=== PATIENT | female | born 1995 | race Caucasian/White ===

== ENCOUNTER 2020-02-19 13:54 | Emergency (ER) | payer OTHER ==
[2020-02-19] MEDS ORDERED: DEXAMETHASONE 10 MG/ML VIAL PO STA (14:36)
[2020-02-19] MEDS ORDERED: CHERRY SYRUP 10 ML UDC PO ONE (14:36)
--- NOTE | 2020-02-19 14:44 | ED Physician Documentation ---
PD HPI CHEST PAIN - Stated complaint Stated Complaint: CHEST PAIN - Chief complaint Chief Complaint: General - History obtained from History obtained from: Patient - History of Present Illness Timing - onset: How many days ago (5) Timing - onset during: Rest Timing - duration: Days (5) Timing - details: Gradual onset, Still present Quality: Sharp, Pain Location: Substernal Radiation: Right upper extremity Improved by: Rest Worsened by: Inspiration Similar symptoms before: Has not had sx before Recently seen: Not recently seen - Additional information Additional information: 24-year-old female reports a 5-day history of anterior chest pain with some radiation into her right arm. She describes pain in the lower back starting 2 weeks ago, a reduction in working out for about a week and the onset of pain in the lower chest wall posteriorly followed today by pain in the anterior chest and right arm. Review of Systems Constitutional: denies: Fever Eyes: denies: Decreased vision Ears: denies: Ear pain Nose: denies: Rhinorrhea / runny nose, Congestion Throat: denies: Sore throat Cardiac: reports: Chest pain / pressure. denies: Palpitations, Pedal edema, Calf pain Respiratory: denies: Dyspnea, Cough, Wheezing GI: denies: Abdominal Pain, Nausea, Vomiting : denies: Dysuria, Frequency Skin: denies: Rash Musculoskeletal: reports: Back pain. denies: Neck pain, Extremity pain Neurologic: denies: Generalized weakness, Focal weakness, Numbness PD PAST MEDICAL HISTORY - Present Medications Home Medications: Ambulatory Orders Medication Instructions Recorded Confirmed Cyclobenzaprine [Flexeril] 10 mg PO TID PRN #20 tablet 02/19/20 Meloxicam [Mobic] 15 mg PO DAILY #20 tablet 02/19/20 - Allergies Allergies/Adverse Reactions: Allergies Allergy/AdvReac Type Severity Reaction Status Date / Time No Known Drug Allergies Allergy Verified 02/19/20 14:11 PD ED PE NORMAL - Vitals Vital signs reviewed: Yes (hypertensive with wide pulse pressure. ) - General General: Alert and oriented X 3, No acute distress, Well developed/nourished - HEENT HEENT: Atraumatic, PERRL, EOMI - Neck Neck: Supple, no meningeal sign, No bony TTP - Cardiac Cardiac: RRR, No murmur - Respiratory Respiratory: No respiratory distress, Clear bilaterally - Abdomen Abdomen: Normal bowel sounds, Soft, Non tender, Non distended, No organomegaly - Back Back: No CVA TTP, No spinal TTP - Derm Derm: Normal color, Warm and dry, No rash - Extremities Extremities: No deformity, No edema - Neuro Neuro: Alert and oriented X 3, lead generation specialist 2-12 intact, No motor deficit, No sensory deficit, Normal speech Eye Opening: Spontaneous Motor: Obeys Commands Verbal: Oriented GCS Score: 15 - Psych Psych: Normal mood, Normal affect Results - Vitals Vitals: Vital Signs - 24 hr 02/19/20 02/19/20 02/19/20 14:09 14:13 16:04 Temperature 36.8 C Heart Rate 78 83 70 Respiratory 18 18 16 Rate Blood Pressure 138/61 H 128/70 101/78 O2 Saturation 100 99 99 Oxygen O2 Source Room air - EKG (time done) 1412 Rate: Rate (enter#) (96) Rhythm: NSR Compare to prior EKG: Old EKG unavailable Computer interpretation: Agree with computer - Labs Labs: Laboratory Tests 02/19/20 02/19/20 02/19/20 14:50 14:50 15:14 WBC 7.1 RBC 4.37 Hgb 14.0 Hct 40.9 MCV 93.6 MCH 32.0 H MCHC 34.2 RDW 11.9 L Plt Count 211 MPV 9.5 Neut # (Auto) 4.3 Lymph # (Auto) 2.2 [place] # (Auto) 0.5 Eos # (Auto) 0.1 Baso # (Auto) 0.0 Absolute Nucleated RBC 0.00 Nucleated RBC % 0.0 Sodium 139 Potassium 3.5 Chloride 103 Carbon Dioxide 26 Anion Gap 10.0 BUN 14 Creatinine 0.9 Estimated GFR (MDRD) 76 L Glucose 114 H Calcium 9.2 Total Bilirubin 0.6 AST 18 ALT 16 Alkaline Phosphatase 51 Total Protein 7.2 Albumin 4.3 Globulin 2.9 Albumin/Globulin Ratio 1.5 Lipase 33 Urine Color YELLOW Urine Clarity CLEAR Urine pH 7.0 Ur Specific [place] 1.015 Urine Protein NEGATIVE Urine Glucose (UA) NEGATIVE Urine Ketones NEGATIVE Urine Occult Blood TRACE-LYSE Urine Nitrite NEGATIVE Urine Bilirubin NEGATIVE Urine Urobilinogen 0.2 (NORMAL) Ur Leukocyte Esterase NEGATIVE Ur Microscopic Review NOT INDICATED Urine Culture Comments NOT INDICATED Urine HCG, Qual NEGATIVE Procedures - IVC sono (time) 1445 Bedside IVC sono: IVC measures (cm) (1.2), IVC collapsed c insp (cm) (complete), Dehydration (est 1 liter deficit) PD MEDICAL DECISION MAKING - ED course Complexity details: reviewed results, re-evaluated patient, considered differential, d/w patient ED course: 24 y/o female with low back pain and lower chest pain is found to be dehydrated and she is orally hydrated and administered decadron. Departure - Departure Disposition: Home, Self Care Clinical Impression: Chest wall pain, Dehydration Condition: Stable Instructions: ED Strain Chest Wall, ED Dehydration Follow-Up: Stepan Dobbs ARNP [Primary Care Provider] - Prescriptions: Cyclobenzaprine [Flexeril] 10 mg PO TID PRN #20 tablet PRN Reason: Spasms Meloxicam [Mobic] 15 mg PO DAILY #20 tablet Discharge Date/Time: 02/19/20 16:09
[2020-02-19 14:53] LABS: BASOPHILS % (AUTO) 0.6 %; EOSINOPHILS # (AUTO) 0.1 10^3/uL (0.0-0.7); EOSINOPHILS % (AUTO) 1.3 %; LYMPHOCYTES # (AUTO) 2.2 10^3/uL (1.5-3.5); LYMPHOCYTES % (AUTO) 30.7 %; MEAN CORPUSCULAR HGB CONC 34.2 g/dL (32.0-36.0); MEAN CORPUSCULAR VOLUME 93.6 fL (81.0-99.0); MEAN PLATELET VOLUME 9.5 fL (7.9-10.8); MONOCYTES # (AUTO) 0.5 10^3/uL (0.0-1.0); MONOCYTES % (AUTO) 6.9 %; NEUTROPHILS # (AUTO) 4.3 10^3/uL (1.5-6.6); NEUTROPHILS % (AUTO) 60.1 %; PLT - PLATELET COUNT 211 10^3/uL (130-450); RED BLOOD COUNT 4.37 10^6/uL (4.20-5.40); RED CELL DISTRIBUTION WIDTH 11.9 % (12.0-15.0); WHITE BLOOD COUNT 7.1 x10^3/uL (4.8-10.8)
[2020-02-19 15:10] LABS: ALBUMIN 4.3 g/dL (3.2-5.5); ALBUMIN/GLOBULIN RATIO 1.5 (1.0-2.2); BILIRUBIN,TOTAL 0.6 mg/dL (0.2-1.0); CALCIUM 9.2 mg/dL (8.5-10.3); CREATININE 0.9 mg/dL (0.4-1.0); TOTAL PROTEIN 7.2 g/dL (6.7-8.2)
--- NOTE | 2020-02-19 15:20 | XRAY Report ---
PROCEDURE: Chest 2 View X-Ray INDICATIONS: chest pain TECHNIQUE: 2 view(s) of the chest. COMPARISON: None. FINDINGS: Surgical changes and devices: None. Lungs and pleura: No pleural effusions or pneumothorax. Lungs are clear. Mediastinum: Mediastinal contours are normal. Heart size is normal. Bones and chest wall: No suspicious bony abnormalities. Soft tissues appear unremarkable. IMPRESSION: No evidence acute pulmonary process. Reviewed by: Benito Forman MD on 02/19/2020 2:18 PM AKDT Approved by: Benito Forman MD on 02/19/2020 2:18 PM AKDT Station ID: [id number]
[2020-02-19 15:24] LABS: BILIRUBIN,URINE NEGATIVE (NEGATIVE); GLUCOSE, URINE (UA) NEGATIVE (NEGATIVE); KETONES,URINE (UA) NEGATIVE (NEGATIVE); LEUKOCYTE ESTERASE, URINE NEGATIVE (NEGATIVE); NITRITE,URINE NEGATIVE (NEGATIVE); OCCULT BLOOD,URINE TRACE-LYSE (NEGATIVE); PROTEIN,URINE NEGATIVE (NEGATIVE); UROBILINOGEN,URINE 0.2 (NORMAL) E.U./dL (NORMAL)
[2020-02-19 15:25] LABS: CLARITY,URINE CLEAR (CLEAR)
[2020-02-19 15:26] LABS: HCG UR QUAL NEGATIVE
[2020-02-19 16:05] VITALS: BP 101/78
== END 2020-02-19 16:09 | disposition home or self-care (01) ==
LOC: ED 13:54
DX: R07.89 Other chest pain (principal); E86.0 Dehydration
CPT/HCPCS: 36415; 71046; 80053; 81003; 81025; 83690; 85025; 93005; 99284; A9270; 81001; 87086

== ENCOUNTER 2020-02-24 13:39 | Emergency (ER) | payer OTHER ==
[2020-02-24 16:48] LABS: BILIRUBIN,URINE NEGATIVE (NEGATIVE); GLUCOSE, URINE (UA) NEGATIVE (NEGATIVE); KETONES,URINE (UA) NEGATIVE (NEGATIVE); LEUKOCYTE ESTERASE, URINE NEGATIVE (NEGATIVE); NITRITE,URINE NEGATIVE (NEGATIVE); OCCULT BLOOD,URINE TRACE-INTA (NEGATIVE); PH,URINE 7.5 PH (5.0-7.5); PROTEIN,URINE NEGATIVE (NEGATIVE); UROBILINOGEN,URINE 0.2 (NORMAL) E.U./dL (NORMAL)
[2020-02-24 16:57] LABS: BACTERIA,URINE None Seen /HPF (None Seen); CLARITY,URINE CLEAR (CLEAR); RBC,URINE None Seen /HPF (0-5); SQUAMOUS EPITHELIAL CELL,UR FEW Squamous (<= Few)
--- NOTE | 2020-02-24 17:00 | ED Physician Documentation ---
History of Present Illness - Stated complaint Stated Complaint: CP, ABD PX - Chief complaint Chief Complaint: Abd Pain - History obtained from History obtained from: Patient, Family - History of Present Illness Timing: Prior to arrival, How many weeks ago - Additonal information Additional information: 24-year-old female returns to the emergency department for chief complaint of chest pain and right upper quadrant abdominal pain. Patient was seen for similar 02/19/2020 with no significant findings on her work-up.Since discharge patient reports that she often has pain in her chest at rest. She has become dyspneic especially with activity. Chest pain is typically described as sharp. It is not worse with movement. It is not reproducible. She is also noticed that she has a cramping sensation just below the right costal margin of her ribs. She is had no cough or fever. No diarrhea. No urinary symptoms. Patient has tried [id number] pain relievers but they do not work. Patient denies any recent travel. No unilateral leg swelling or calf pain. No hemoptysis. No personal history of DVT or cancer. No family history for thrombosis. Patient is not taking hormones. Past surgical history pertinent for appendectomy. Review of Systems Constitutional: denies: Fever, Myalgias Cardiac: reports: Chest pain / pressure Respiratory: reports: Dyspnea. denies: Cough, Hemoptysis, Wheezing GI: reports: Abdominal Pain. denies: Nausea, Vomiting, Diarrhea : denies: Dysuria, Frequency, Hesitancy Skin: denies: Rash, Lesions Musculoskeletal: denies: Neck pain, Back pain Neurologic: denies: Generalized weakness, Syncope PD PAST MEDICAL HISTORY - Past Medical History Past Medical History: Yes Cardiovascular: None Respiratory: None Neuro: None Endocrine/Autoimmune: None GI: None SALES AND MARKETING EXECUTIVE: None : None HEENT: None Psych: None Musculoskeletal: None Derm: None - Past Surgical History Past Surgical History: No - Present Medications Home Medications: Ambulatory Orders Medication Instructions Recorded Confirmed Cyclobenzaprine [Flexeril] 10 mg PO TID PRN #20 tablet 02/19/20 Meloxicam [Mobic] 15 mg PO DAILY #20 tablet 02/19/20 - Allergies Allergies/Adverse Reactions: Allergies Allergy/AdvReac Type Severity Reaction Status Date / Time No Known Drug Allergies Allergy Verified 02/19/20 14:11 - Social History Does the pt smoke?: No Smoking Status: Never smoker Does the pt drink ETOH?: No Does the pt have substance abuse?: No - Immunizations Immunizations are current?: Yes PD ED PE NORMAL - General General: Alert and oriented X 3, No acute distress, Well developed/nourished - HEENT HEENT: PERRL, EOMI - Neck Neck: Supple, no meningeal sign, No adenopathy - Cardiac Cardiac: RRR, No murmur, Other (Pain in the chest is not reproducible with palpation.) - Respiratory Respiratory: No respiratory distress - Abdomen Abdomen: Normal bowel sounds, Soft, Other (Mild tenderness in the right upper quadrant without radiation. Negative Aceves's. Negative McBurney's No guarding or rebound.) - Back Back: No: No CVA TTP, No spinal TTP Results - Vitals Vitals: Vital Signs - 24 hr 02/24/20 02/24/20 13:44 19:12 Temperature 37.0 C Heart Rate 130 H 82 Respiratory 18 18 Rate Blood Pressure 146/108 H 115/69 O2 Saturation 100 98 Oxygen O2 Source Room air - EKG (time done) 1356 Rate: Rate (enter#) (110) Rhythm: Sinus tachycardia [place]: Normal Intervals: Normal [place] QRS: Normal Ischemia: Normal ST segments Compare to prior EKG: Changed from prior EKG (now tachycardic) Computer interpretation: Agree with computer - Labs Labs: Laboratory Tests 02/24/20 02/24/20 02/24/20 13:21 13:21 13:21 WBC 9.1 RBC 4.68 Hgb 14.8 Hct 43.1 MCV 92.1 MCH 31.6 H MCHC 34.3 RDW 11.9 L Plt Count 261 MPV 9.3 Neut # (Auto) 5.9 Lymph # (Auto) 2.6 [place] # (Auto) 0.5 Eos # (Auto) 0.1 Baso # (Auto) 0.0 Absolute Nucleated RBC 0.00 Nucleated RBC % 0.0 D-Dimer < 200.0 L Sodium 139 Potassium 3.8 Chloride 101 Carbon Dioxide 27 Anion Gap 11.0 BUN 14 Creatinine 0.9 Estimated GFR (MDRD) 76 L Glucose 98 Calcium 9.5 Total Bilirubin 0.6 AST 16 ALT 14 Alkaline Phosphatase 53 Troponin I High Sens Total Protein 8.0 Albumin 4.8 Globulin 3.2 Albumin/Globulin Ratio 1.5 Lipase 32 Urine Color Urine Clarity Urine pH Ur Specific [place] Urine Protein Urine Glucose (UA) Urine Ketones Urine Occult Blood Urine Nitrite Urine Bilirubin Urine Urobilinogen Ur Leukocyte Esterase Urine RBC Urine WBC Ur Squamous Epith Cells Urine Bacteria Urine Culture Comments Urine HCG, Qual 02/24/20 02/24/20 02/24/20 13:21 16:35 16:35 WBC RBC Hgb Hct MCV MCH MCHC RDW Plt Count MPV Neut # (Auto) Lymph # (Auto) [place] # (Auto) Eos # (Auto) Baso # (Auto) Absolute Nucleated RBC Nucleated RBC % D-Dimer Sodium Potassium Chloride Carbon Dioxide Anion Gap BUN Creatinine Estimated GFR (MDRD) Glucose Calcium Total Bilirubin AST ALT Alkaline Phosphatase Troponin I High Sens < 2.3 L Total Protein Albumin Globulin Albumin/Globulin Ratio Lipase Urine Color YELLOW Urine Clarity CLEAR Urine pH 7.5 Ur Specific [place] 1.015 1.015 Urine Protein NEGATIVE Urine Glucose (UA) NEGATIVE Urine Ketones NEGATIVE Urine Occult Blood TRACE-INTA Urine Nitrite NEGATIVE Urine Bilirubin NEGATIVE Urine Urobilinogen 0.2 (NORMAL) Ur Leukocyte Esterase NEGATIVE Urine RBC None Seen Urine WBC 0-3 Ur Squamous Epith Cells FEW Squamous Urine Bacteria None Seen Urine Culture Comments NOT INDICATED Urine HCG, Qual NEGATIVE - Rads (name of study) CT abd/pelvis: Radiology: Final report received (No acute process. No hydronephrosis. No urolithiasis) abd ultrasound Radiology: Final report received (Normal appearance of the gallbladder. Mild right upper pole calyectasis.) PD MEDICAL DECISION MAKING - ED course Complexity details: reviewed results, re-evaluated patient, d/w patient, d/w family ED course: -year-old female returns to the emergency department with chief complaint of chest pain that is pleuritic in nature as well as right upper quadrant abdominal pain. - As patient had been seen here just a few days prior and with tachycardia we could not rule out a PE via [place] or PERC criteria a d-dimer was completed. Her d-dimer is normal. Therefore I do not feel that we need to pursue CT imaging for her pleuritic chest pain. - Labs reviewed in full and were essentially normal. Her urine shows no signs of infection. No hematuria. - Limited abdominal ultrasound did show concern for right renal calyectasis. Given the location of the pain I was concerned that she may have undiagnosed nephrolithiasis. CT of the abdomen was completed and there were no findings of nephrolithiasis or hydronephrosis. - Discussed all these findings in detail with the patient. During the course of the ED visit she has been relatively comfortable and has required very little pain management. I recommended NSAID medications at home and very close follow- up with her primary care physician. Emergent return precautions were discussed. Departure - Departure Disposition: 01 Home, Self Care Clinical Impression: Right upper quadrant abdominal pain, Pleuritic chest pain Condition: Stable Instructions: Abdominal Pain Follow-Up: Stepan Dobbs ARNP [Primary Care Provider] - Comments: Veronica your x-ray a few days ago was normal. Today the CT of your abdomen and pelvis does not show any worrisome findings. Specifically there are no kidney stones seen and no swelling of the kidney. The ultrasound that was completed did suggest mild swelling in one pole of the kidney but again this was not seen on the CT scan. Your lab work is essentially normal. I do not have concerned that you are having a heart attack or that you have a blood clot in your lungs. I do however think that you may be having some kidney pain. Sometimes we can see this when patients have stones that are simply too small to see on either ultrasound or CAT scan. Please continue to take ibuprofen at home with food as needed. I would like you to see your primary care doctor in follow-up in the next 1 to 2 weeks. If your pain persists further evaluation may be warranted with a uro logist. Please return here if you have fevers, bloody urine, cannot breathe or speak normally or have any other emergent concerns.
[2020-02-24 17:28] LABS: BASOPHILS % (AUTO) 0.3 %; EOSINOPHILS # (AUTO) 0.1 10^3/uL (0.0-0.7); EOSINOPHILS % (AUTO) 1.2 %; HGB - HEMOGLOBIN 14.8 g/dL (12.0-16.0); LYMPHOCYTES # (AUTO) 2.6 10^3/uL (1.5-3.5); LYMPHOCYTES % (AUTO) 28.1 %; MEAN CORPUSCULAR HEMOGLOBIN 31.6 pg (27.0-31.0); MEAN CORPUSCULAR HGB CONC 34.3 g/dL (32.0-36.0); MEAN CORPUSCULAR VOLUME 92.1 fL (81.0-99.0); MEAN PLATELET VOLUME 9.3 fL (7.9-10.8); MONOCYTES # (AUTO) 0.5 10^3/uL (0.0-1.0); MONOCYTES % (AUTO) 5.7 %; NEUTROPHILS # (AUTO) 5.9 10^3/uL (1.5-6.6); NEUTROPHILS % (AUTO) 64.4 %; PLT - PLATELET COUNT 261 10^3/uL (130-450); RED BLOOD COUNT 4.68 10^6/uL (4.20-5.40); RED CELL DISTRIBUTION WIDTH 11.9 % (12.0-15.0); WHITE BLOOD COUNT 9.1 x10^3/uL (4.8-10.8)
[2020-02-24 17:34] LABS: HCG UR QUAL NEGATIVE
[2020-02-24 17:41] LABS: ALBUMIN 4.8 g/dL (3.2-5.5); ALBUMIN/GLOBULIN RATIO 1.5 (1.0-2.2); BILIRUBIN,TOTAL 0.6 mg/dL (0.2-1.0); CALCIUM 9.5 mg/dL (8.5-10.3); CREATININE 0.9 mg/dL (0.4-1.0)
--- NOTE | 2020-02-24 19:03 | Ultrasound Report ---
PROCEDURE: Abdomen Limited INDICATIONS: ruq abd pain TECHNIQUE: Real-time focused scanning was performed of the abdomen, with image documentation. COMPARISON: None FINDINGS: Liver, gallbladder, biliary tree unremarkable. No sonographic Aceves's sign. No pericholec ystic fluid. No gallbladder wall thickening. The pancreas is within normal limits Right kidney measures 10.9 cm in length. There is mild right upper pole caliectasis. IMPRESSION: Normal appearance of the gallbladder Mild right upper pole caliectasis Reviewed by: Juventino Dupont MD on 02/24/2020 7:02 PM PDT Approved by: Juventino Dupont MD on 02/24/2020 7:02 PM PDT Station ID: [id number]
--- NOTE | 2020-02-24 20:20 | CT Report ---
PROCEDURE: Abdomen/Pelvis WO INDICATIONS: eval for obstructive uropathy TECHNIQUE: Noncontrast 5 mm thick sections acquired from the diaphragms to the symphysis. 5 mm coronal and sagi ttal reformats were then performed. For radiation dose reduction, the following was used: automated exposure control, adjustment of mA and/or kV according to patient size. COMPARISON: None. FINDINGS: Image quality: Excellent. ABDOMEN: Lung bases: Lung bases are clear. Heart size is normal. Solid organs: Liver and spleen are normal in size. Gallbladder negative Pancreas is normal in cont ours. No adrenal nodules. Kidneys are normal in size, without hydronephrosis or nephrolithiasis. Peritoneum and bowel: Unenhanced bowel loops demonstrate normal wall thickness and caliber. No free fluid or air. Appendix not visualized. It may be surgically absent. Nodes and vessels: No retroperitoneal or mesenteric adenopathy by size criteria. Aorta and inferior vena cava are normal in caliber. Miscellaneous: No ventral hernias. PELVIS: Genitourinary: Bladder wall thickness is normal. Miscellaneous: No inguinal hernias or adenopathy. Bones: No suspicious bony lesions. No vertebral body compression fractures. IMPRESSION: No acute process. No hydronephrosis. No urolithiasis. Reviewed by: Juventino Dupont MD on 02/24/2020 8:19 PM PDT Approved by: Juventino Dupont MD on 02/24/2020 8:19 PM PDT Station ID: [id number]
[2020-02-24 21:09] VITALS: BP 128/80
== END 2020-02-24 21:09 | disposition home or self-care (01) ==
LOC: ED 13:39
DX: R10.11 Right upper quadrant pain (principal); R07.81 Pleurodynia
CPT/HCPCS: 36415; 74176; 76705; 80053; 81001; 81025; 83690; 84484; 85025; 85379; 87086; 93005; 99284

== ENCOUNTER 2020-04-16 16:03 | Emergency (ER) | payer OTHER ==
--- NOTE | 2020-04-16 16:25 | ED Physician Documentation ---
PD HPI ABD PAIN - Stated complaint Stated Complaint: RLQ PAIN - Chief complaint Chief Complaint: Abd Pain - History obtained from History obtained from: Patient - Additional information Additional information: Previously healthy monogamous 24-year-old woman with a 3-year-old boy at home presents by ambulance for ongoing concerning symptoms. It started almost 2 months ago with constant chest pains that are now milder and intermittent. She was seen twice during that time and had a work-up with negative troponins d- dimer chest x-ray etc. Subsequently developed more abdominal pain first in the right upper quadrant and was seen here and had negative right upper quadrant sonography as well as a CT of the abdomen and pelvis. Now for the last month has had daily right lower quadrant pain with milder left upper quadrant pain. She feels early satiety nausea without vomiting. She Is usually constipated but occasionally has diarrhea as well. No fevers or sick contacts. Has not lost any weight. She denies alcohol or drug use including marijuana. Previous to this she was exercising but stopped exercising when she started having intermittent chest pains. Review of Systems Ten Systems: 10 systems reviewed and negative Constitutional: reports: Myalgias, Fatigue. denies: Fever, Chills Throat: denies: Dental pain / toothache, Sore throat Cardiac: reports: Chest pain / pressure. 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 04/16/20 - Allergies Allergies/Adverse Reactions: Allergies Allergy/AdvReac Type Severity Reaction Status Date / Time No Known Drug Allergies Allergy Verified 04/16/20 16:07 - Social History Does the pt smoke?: No Smoking Status: Never smoker Does the pt drink ETOH?: No Does the pt have substance abuse?: No - Immunizations Immunizations are current?: Yes PD ED PE NORMAL - Vitals Vital signs reviewed: Yes - General General: Alert and oriented X 3, No acute distress - HEENT HEENT: PERRL, EOMI - Neck Neck: Supple, no meningeal sign, No bony TTP - Cardiac Cardiac: RRR, No murmur - Respiratory Respiratory: No respiratory distress, Clear bilaterally - Abdomen Abdomen: Normal bowel sounds, Soft, Non tender - Back Back: No CVA TTP, No spinal TTP - Derm Derm: Normal color, Warm and dry - Extremities Extremities: No edema, No calf tenderness / cord - Neuro Neuro: Alert and oriented X 3, Normal speech Results - Vitals Vitals: Vital Signs - 24 hr 04/16/20 04/16/20 16:07 18:10 Temperature 37.4 C Heart Rate 96 69 Respiratory 16 10 L Rate Blood Pressure 125/84 H 95/50 L O2 Saturation 96 98 Oxygen O2 Source Room air - Labs Labs: Laboratory Tests 04/16/20 04/16/20 04/16/20 16:25 16:25 16:33 WBC 9.8 RBC 4.44 Hgb 14.2 Hct 40.2 MCV 90.5 MCH 32.0 H MCHC 35.3 RDW 11.9 L Plt Count 285 MPV 9.4 Neut # (Auto) 5.8 Lymph # (Auto) 3.1 [place] # (Auto) 0.8 Eos # (Auto) 0.2 Baso # (Auto) 0.0 Absolute Nucleated RBC 0.00 Nucleated RBC % 0.0 VBG pH VBG pCO2 VBG pO2 VBG HCO3 VBG Total CO2 VBG O2 Saturation VBG Base Excess Sodium Potassium Chloride Carbon Dioxide Anion Gap BUN Creatinine Estimated GFR (MDRD) Glucose Calcium Total Bilirubin AST ALT Alkaline Phosphatase Total Creatine Kinase C-Reactive Protein Total Protein Albumin Globulin Albumin/Globulin Ratio Lipase Urine Color LT. YELLOW Urine Clarity CLEAR Urine pH 7.5 Ur Specific [place] 1.010 1.010 Urine Protein NEGATIVE Urine Glucose (UA) NEGATIVE Urine Ketones NEGATIVE Urine Occult Blood NEGATIVE Urine Nitrite NEGATIVE Urine Bilirubin NEGATIVE Urine Urobilinogen 0.2 (NORMAL) Ur Leukocyte Esterase NEGATIVE Ur Microscopic Review NOT INDICATED Urine Culture Comments NOT INDICATED Urine HCG, Qual NEGATIVE Urine Opiates Screen NEGATIVE Ur Oxycodone Screen NEGATIVE Urine Methadone Screen NEGATIVE Ur Propoxyphene Screen NEGATIVE Ur Barbiturates Screen NEGATIVE Ur Tricyclics Screen NEGATIVE Ur Phencyclidine Scrn NEGATIVE Ur Amphetamine Screen NEGATIVE U Methamphetamines Scrn NEGATIVE U Benzodiazepines Scrn NEGATIVE Urine Cocaine Screen NEGATIVE U Cannabinoids Screen NEGATIVE 04/16/20 04/16/20 04/16/20 16:33 16:33 16:33 WBC RBC Hgb Hct MCV MCH MCHC RDW Plt Count MPV Neut # (Auto) Lymph # (Auto) [place] # (Auto) Eos # (Auto) Baso # (Auto) Absolute Nucleated RBC Nucleated RBC % VBG pH 7.419 H VBG pCO2 36.0 L VBG pO2 61.7 H VBG HCO3 22.8 L VBG Total CO2 23.9 L VBG O2 Saturation 92.0 H VBG Base Excess -1.2 Sodium 139 Potassium 3.6 Chloride 104 Carbon Dioxide 24 Anion Gap 11.0 BUN 13 Creatinine 0.8 Estimated GFR (MDRD) 87 L Glucose 117 H Calcium 9.4 Total Bilirubin 0.7 AST 16 ALT 15 Alkaline Phosphatase 54 Total Creatine Kinase 68 C-Reactive Protein < 1.0 Total Protein 7.7 Albumin 4.6 Globulin 3.1 Albumin/Globulin Ratio 1.5 Lipase 43 Urine Color Urine Clarity Urine pH Ur Specific [place] Urine Protein Urine Glucose (UA) Urine Ketones Urine Occult Blood Urine Nitrite Urine Bilirubin Urine Urobilinogen Ur Leukocyte Esterase Ur Microscopic Review Urine Culture Comments Urine HCG, Qual Urine Opiates Screen Ur Oxycodone Screen Urine Methadone Screen Ur Propoxyphene Screen Ur Barbiturates Screen Ur Tricyclics Screen Ur Phencyclidine Scrn Ur Amphetamine Screen U Methamphetamines Scrn U Benzodiazepines Scrn Urine Cocaine Screen U Cannabinoids Screen - Rads (name of study) Pelvic sono Radiology: Final report received PD MEDICAL DECISION MAKING - ED course ED course: 24-year-old woman with ongoing issues with abdominal pain, headaches. She has had previous work-ups with chest pain and abdominal pain which is such been negative. Had an upper endoscopy but has not received formal results yet. Exam is benign as are her labs. Feeling somewhat better after dicyclomine and Ativan. Many parts of her history are suggestive of IBS. Departure - Departure Disposition: 01 Home, Self Care Clinical Impression: Abdominal pain Qualifiers: Abdominal location: unspecified location Qualified Code(s): R10.9 - Unspecified abdominal pain Condition: Good Record reviewed to determine appropriate education?: Yes Instructions: ED Abdominal Pain Unkn Cause Prescriptions: Dicyclomine HCl 20 mg PO QID PRN #30 tablet PRN Reason: Abdominal Pain Omeprazole 20 mg PO DAILY #30 capsule. Comments: Lab work remained stable and normal today. We also ran a C-reactive protein which was low suggestive against any inflammatory process like Crohn's disease. As discussed, the cause your pain is not clear, but your symptoms suggest some level of irritable bowel syndrome. I suggest he talk to your doctor about a formal gastroenterology referral. Also you need to follow-up on the results from the upper endoscopy done a couple of weeks ago. I am starting some medications for irritable bowel syndrome, also gastritis.
[2020-04-16] MEDS ORDERED: LORazepam 0.5 MG TABLET PO STA (16:26)
[2020-04-16] MEDS ORDERED: DICYCLOMINE 10 MG CAPSULE PO STA (16:26)
[2020-04-16 16:38] LABS: MUDS CUTOFF CONCENTRATIONS CUTOFF CONC BELOW:
[2020-04-16 16:43] LABS: BASOPHILS % (AUTO) 0.4 %; EOSINOPHILS # (AUTO) 0.2 10^3/uL (0.0-0.7); EOSINOPHILS % (AUTO) 1.6 %; HGB - HEMOGLOBIN 14.2 g/dL (12.0-16.0); LYMPHOCYTES # (AUTO) 3.1 10^3/uL (1.5-3.5); LYMPHOCYTES % (AUTO) 31.3 %; MEAN CORPUSCULAR HGB CONC 35.3 g/dL (32.0-36.0); MEAN CORPUSCULAR VOLUME 90.5 fL (81.0-99.0); MEAN PLATELET VOLUME 9.4 fL (7.9-10.8); MONOCYTES # (AUTO) 0.8 10^3/uL (0.0-1.0); MONOCYTES % (AUTO) 7.6 %; NEUTROPHILS # (AUTO) 5.8 10^3/uL (1.5-6.6); NEUTROPHILS % (AUTO) 58.7 %; PLT - PLATELET COUNT 285 10^3/uL (130-450); RED BLOOD COUNT 4.44 10^6/uL (4.20-5.40); RED CELL DISTRIBUTION WIDTH 11.9 % (12.0-15.0); WHITE BLOOD COUNT 9.8 x10^3/uL (4.8-10.8)
[2020-04-16 16:45] LABS: VBG BASE EXCESS -1.2 mmol/L (-2 - +2); VBG PH 7.419 (7.31-7.41); VBG PO2 61.7 mmHg (25-47); VBG TOTAL CO2 23.9 mmol/L (24-29)
[2020-04-16 16:54] LABS: ALBUMIN 4.6 g/dL (3.2-5.5); ALBUMIN/GLOBULIN RATIO 1.5 (1.0-2.2); BILIRUBIN,TOTAL 0.7 mg/dL (0.2-1.0); CALCIUM 9.4 mg/dL (8.5-10.3); CREATININE 0.8 mg/dL (0.4-1.0); TOTAL PROTEIN 7.7 g/dL (6.7-8.2)
[2020-04-16 17:00] LABS: AMPHETAMINE SCREEN,URINE NEGATIVE (NEGATIVE); BENZODIAZEPINES SCREEN, URINE NEGATIVE (NEGATIVE); COCAINE SCREEN URINE NEGATIVE (NEGATIVE); HCG UR QUAL NEGATIVE; METHADONE SCREEN, URINE NEGATIVE (NEGATIVE); METHAMPHETAMINES SCREEN, URINE NEGATIVE (NEGATIVE); OPIATE SCREEN, URINE NEGATIVE (NEGATIVE); OXYCODONE SCREEN, URINE NEGATIVE (NEGATIVE); PROPOXYPHENE SCREEN, URINE NEGATIVE (NEGATIVE); TRICYCLIC ANTIDEPRESSANT,URINE NEGATIVE (NEGATIVE)
[2020-04-16 17:15] LABS: BILIRUBIN,URINE NEGATIVE (NEGATIVE); CLARITY,URINE CLEAR (CLEAR); GLUCOSE, URINE (UA) NEGATIVE (NEGATIVE); KETONES,URINE (UA) NEGATIVE (NEGATIVE); LEUKOCYTE ESTERASE, URINE NEGATIVE (NEGATIVE); NITRITE,URINE NEGATIVE (NEGATIVE); OCCULT BLOOD,URINE NEGATIVE (NEGATIVE); PH,URINE 7.5 PH (5.0-7.5); PROTEIN,URINE NEGATIVE (NEGATIVE); UROBILINOGEN,URINE 0.2 (NORMAL) E.U./dL (NORMAL)
[2020-04-16] MEDS ORDERED: KETOROLAC 60 MG/2 ML VIAL IM STA (17:39)
--- NOTE | 2020-04-16 19:12 | Ultrasound Report ---
PROCEDURE: Pelvic w/Transvag+Doppler Comp INDICATIONS: pelvic pain, R TECHNIQUE: Real-time scanning was performed of the pelvic organs, with image documentation. Additional endovagi nal scanning was necessary due to incomplete visualization of the adnexal and endometrial structures by transabdominal scanning. COMPARISON: None. FINDINGS: Transabdominal scanning: Limited scanning through the kidneys shows no hydronephrosis. No pathologi c free abdominal or pelvic fluid. Endovaginal scanning: Uterus: Uterus is normal in size at 8.3 x 3.1 cm. The endometrium measures 4.3 mm in combined thick ness. Ovaries: Within normal limits IMPRESSION: Negative pelvic ultrasound. Reviewed by: Siva Ortega MD on 04/16/2020 7:11 PM PDT Approved by: Siva Ortega MD on 04/16/2020 7:11 PM PDT Station ID: [id number]
[2020-04-16] MEDS ORDERED: HYDROcod/ACET 5/325 Prepack 4 PO STA (19:32)
[2020-04-16] MEDS ORDERED: PANTOPRAZOLE 40 MG TABLET PO STA (19:32)
[2020-04-16 20:04] VITALS: BP 120/86
== END 2020-04-16 20:03 | disposition home or self-care (01) ==
LOC: EDUNIT# → ED 16:03
DX: R10.31 Right lower quadrant pain (principal); R10.12 Left upper quadrant pain; R07.9 Chest pain, unspecified; R51 Headache; R11.0 Nausea
CPT/HCPCS: 36415; 76830; 76856; 80053; 80306; 81003; 81025; 82550; 82803; 83690; 85025; 86140; 93975; 96372; 99284; A9270; 81001; 87086

== ENCOUNTER 2020-05-14 13:22 | Outpatient (CLI) | payer OTHER | END 2020-05-14 13:23 | disposition home or self-care (01) | LOC: RT 13:22 | PROVIDERS: ATTEND Internal Medicine | DX: R07.89 Other chest pain (principal) | CPT/HCPCS: 94010 ==